=== PATIENT | female | born 1985 | race Caucasian/White ===

== ENCOUNTER 2018-04-20 12:49 | Emergency (ER) | payer MEDICAID ==
[~2018-04-20] VITALS: Wt 89.0 kg
[2018-04-20 12:52] VITALS: RESP 18
--- NOTE | 2018-04-20 16:22 | ERD ---
ER Documentation Chief Complaint Chief Complaint VAG BLEED TODAY 6 WEEKS PREG HPI 32-year-old female presents with vaginal spotting and cramping for last 2 days. Repair tube. She is referred by clinic for ultrasound. She had her blood drawn today to the clinic. Telephone call with clinic confirms only ultrasound requested. ROS All systems reviewed and are negative except as per history of present illness. PMhx/Soc Medical and Surgical Hx: pt denies Medical Hx, pt denies Surgical Hx Hx Alcohol Use: No Hx Substance Use: No Hx Tobacco Use: No Smoking Status: Never smoker FmHx Family History: No diabetes, No coronary disease, No other Physical Exam Vitals Vital Signs Date Temp Pulse Resp B/P (MAP) Pulse Ox O2 O2 Flow FiO2 Time Delivery Rate 04/20/18 98.3 74 18 120/61 99 12:52 (80) Physical Exam Const: No acute distress Head: Atraumatic Eyes: Normal Conjunctiva ENT: Normal External Ears, Nose and Mouth. Neck: Full range of motion. No meningismus. Resp: Clear to auscultation bilaterally Cardio: Regular rate and rhythm, no murmurs Abd: Soft, mild suprapubic tenderness. No change at McBurney's point no rebound., non distended. Normal bowel sounds Skin: No petechiae or rashes Back: No midline or flank tenderness Ext: No cyanosis, or edema Neur: Awake and alert Psych: Normal Mood and Affect Procedures/MDM Pelvic ultrasound shows a small cystic structure likely gestational sac. No pole or yolk sac visualized. No adnexal masses seen. Was placed with clinic. Patient presents with vaginal spotting and cramping of approximately 6-week . Differential includes early normal , ectopic , threatened . She will be discharged home today re check of hCG and return precautions for fevers, worsening bleeding, pain, new worsening symptoms. Currently has no signs of surgical abdomen, additional concerning symptoms symptoms but close follow-up advised. The patient was stable with no new complaints during the ER course. Clinically, there is no current evidence to suggest meningitis, sepsis, acute abdomen, pneumonia, strok e, acute coronary syndrome, pulmonary embolism, aortic dissection or any other emergent condition appearing to require further evaluation or hospitalization. Patient counseled regarding my diagnostic impression and care plan. Prior to discharge all questions answered. Pt agrees with treatment plan and understands strict return precautions. Pt is instructed to follow up with primary care provider within 24-48 hours. Precautionary instructions provided including instructions to return to the ER if not improving or for any worsening or changing symptoms or concerns. Departure Diagnosis: Primary Impression: Vaginal bleeding in patient at less than 20 weeks ges... Condition: Stable Patient Instructions: Bleeding During Early Additional Instructions: ULTRASONIDO DICE UN BOLSA TARAH. POSIBLEMENTE NORMAL, ECTOPICO O ABORTO. IMPORTANTE PARA CHEQUE OTOR VEZ EN 2-3 SKY PARA CHEQUE HAKAN OTRO VEZ FAUSTINO CHAVES MD Apr 20, 2018 16:22
[2018-04-20 16:28] VITALS: BP 125/63; PULSE 74
== END 2018-04-20 16:29 | disposition home or self-care (01) ==
LOC: FTE 12:49 → EDBD 12:49 → FTE 16:29
DX: O20.9 Hemorrhage in early pregnancy, unspecified (principal); Z3A.01 Less than 8 weeks gestation of pregnancy
CPT/HCPCS: 76801; 76817

== ENCOUNTER 2018-04-23 09:55 | Emergency (ER) | payer MEDICAID ==
[~2018-04-23] VITALS: Ht 172.7 cm; Wt 93.5 kg
[2018-04-23 10:07] VITALS: BP 115/60; PULSE 76; RESP 20; Ht 172.7 cm; Wt 93.5 kg
[2018-04-23] MEDS ORDERED: CEPH-443 PO (12:28)
[2018-04-23] MEDS ORDERED: ACET500C5 PO (12:28)
--- NOTE | 2018-04-23 12:37 | ERD ---
ER Documentation Chief Complaint Chief Complaint Patient here for a recheck vag bleed and 6 weeks pegnant HPI 32-year-old female patient with no significant past medical history presents to ED complaining of vaginal bleeding and lower pelvic pain that started about 8 days ago. Patient reports that she is a . States that her last mensuration was on March 02, 2018. States that she is taking folic acid, ferrous sulfate and calcium. Reports that she has some dysuria. Denies any chest pain, shortness of breath, nausea, vomiting, diarrhea, neck stiffness. ROS All systems reviewed and are negative except as per history of present illness. Medications Home Meds Active Scripts Cephalexin* (Keflex*) 500 Mg Capsule, 500 MG PO QID for 7 Days, CAP Prov:JESSIE PULLIAM PA-C 04/23/18 Acetaminophen* (Tylophen*) 500 Mg Capsule, 1 CAP PO Q6H PRN for PAIN AND OR ELEVATED TEMP, #20 CAP Prov:JESSIE PULLIAM PA-C 04/23/18 PMhx/Soc Medical and Surgical Hx: pt denies Medical Hx, pt denies Surgical Hx Hx Alcohol Use: No Hx Substance Use: No Hx Tobacco Use: No Smoking Status: Never smoker FmHx Family History: No diabetes, No coronary disease Physical Exam Vitals Vital Signs Date Temp Pulse Resp B/P (MAP) Pulse Ox O2 O2 Flow FiO2 Time Delivery Rate 04/23/18 98.6 76 20 115/60 100 10:07 (78) Physical Exam Const: [id number], well-nourished. In no acute distress. Head: Atraumatic, normocephalic Eyes: Normal Conjunctiva without injection. No purulent discharge. ENT: Normal external ear, nose. Moist oropharynx without tonsillar exudates. Non-erythematous pharynx. Uvula midline. No drooling. No trismus. Neck: No cervical midline tenderness. Full range of motion. No meningismus. No cervical lymphadenopathy. No JVD. Resp: Clear to auscultation bilaterally. No wheezing, rhonchi, rales, or crackles. No accessory muscle use. No retractions. Cardio: Regular rate and rhythm. No murmurs, rubs or gallops. Abd: Soft, nontender, non distended. Normal bowel sounds. No palpable masses. No rebound tenderness. No guarding. Negative McBurney's point. Negative psoas sign. Negative obturator sign. Skin: No petechiae or rashes Back: No midline tenderness. No CVA tenderness. Ext: No cyanosis, or edema. Neur: Awake and alert. Normal gait. Normal coordination. Psych: Normal Mood and Affect Result Diagram: 04/23/18 1105 Results 24 hrs Laboratory Tests Test 04/23/18 11:05 White Blood Count 9.4 10^3/ul Red Blood Count 5.24 10^6/ul Hemoglobin 12.2 g/dl Hematocrit 39.5 % Mean Corpuscular Volume 75.4 fl Mean Corpuscular Hemoglobin 23.3 pg Mean Corpuscular Hemoglobin Concent 30.9 g/dl Red Cell Distribution Width 18.4 % Platelet Count 305 10^3/UL Mean Platelet Volume 11.0 fl Immature Granulocytes % 0.400 % Neutrophils % 50.5 % Lymphocytes % 40.0 % Monocytes % 6.3 % Eosinophils % 2.1 % Basophils % 0.7 % Nucleated Red Blood Cells % 0.0 /100WBC Immature Granulocytes # 0.040 10^3/ul Neutrophils # 4.7 10^3/ul Lymphocytes # 3.8 10^3/ul Monocytes # 0.6 10^3/ul Eosinophils # 0.2 10^3/ul Basophils # 0.1 10^3/ul Nucleated Red Blood Cells # 0.0 10^3/ul Urine Color YELLOW Urine Clarity SLIGHTLY CLOUDY Urine pH 6.0 Urine Specific [place] 1.012 Urine Ketones NEGATIVE mg/dL Urine Nitrite NEGATIVE mg/dL Urine Bilirubin NEGATIVE mg/dL Urine Urobilinogen NEGATIVE mg/dL Urine Leukocyte Esterase NEGATIVE Vivian/ul Urine Microscopic RBC > 182 /HPF Urine Microscopic WBC 15 /HPF Urine Squamous Epithelial Cells FEW /HPF Urine Hemoglobin 3+ mg/dL Urine Glucose NEGATIVE mg/dL Urine Total Protein 1+ mg/dl Beta HCG, Quantitative 134.9 mIU/ml Procedures/MDM 32-year-old female patient with no significant past medical history presents to ED complaining of vaginal bleeding during her . Patient is afebrile and nontoxic-appearing. An ultrasound, beta-hCG, CBC, type and RH, UA was ordered to evaluate patient. CBC: No evidence of severe infection or anemia Urine: No elevation in nitrites, leukocyte esterase, 3+ hematuria. 15 WBC. Rh: O positive No indication for Rhogam at this time. beta Hc.9 IMPRESSION: Limited, transabdominal examination. The endometrium is not well visualized. No intrauterine identified. There are no adnexal masses. Correlation with serial beta HCGs and repeat pelvic ultrasound as clinically indicated, is recommended, as ectopic is not excluded on this examination. Patient was treated for urinary tract infection. At this time we still cannot rule out ectopic . Repeat beta-hCG and repeat ultrasound is recommended with [employer]. Patient's bleeding symptoms have stabilized while in the department. Low suspicion for symptomatic anemia, ectopic , sepsis, PID, appendicitis, ovarian torsion, tubo-ovarian abscess, surgical abdomen, or other emergent conditions. Patient was educated that there is a risk for threatened . Patient to follow up with [employer] in 2 days for further evaluation and treatment. Patient is to return sooner to the ED for any worsening symptoms. Patient's questions were answered. Patient understood and agreed with discharge plan. Departure Diagnosis: Primary Impression: Dysuria Additional Impression: Vaginal bleeding in Condition: Stable Patient Instructions: Urinary Tract Infections in Women, Vaginal Bleed in Referrals: [facility] Usted se power hecho un examen mdico de control que le indica que no est en mihai condicin que requiera tratamiento urgente en el Departamento de Emergencia. Un estudio ms profundo y el tratamiento de ficsher condicin pueden esperar sin ningn riesgo hasta que usted sea atendida/o en el consultorio de fischer mdico o mihai clnica. Es responsabilidad suya arreglar mihai laurita para el seguimiento del garrett. MANEJO DE CONDICIONES NO URGENTES EN EL FUTURO 1) Si usted tiene un mdico de atencin primaria: Usted debera llamar a fischer mdico de atencin primaria antes de venir al departa mento de emergencia. Despus de las horas de consultorio, fischer doctor o fischer asociado/a est disponible por telfono. El mdico o enfermero de brittnee en el servicio telefnico puede asesorarle por wilson medio para atender el problema, o garrett contrario se puede programar mihai laurita. 2) Si usted no tiene un mdico de atencin primaria: Llame al mdico o clnica de referencia que aparece abajo tim las horas de consultorio para hacer mihai laurita para que le vean. CLINICAS: [place] [address] [phone] [place] [address] [phone] [place] [address] [phone] [place] [address] [phone] [place] [address] [phone] [facility] [phone] [address] [facility] YOU HAVE RECEIVED A MEDICAL SCREENING EXAM AND THE RESULTS INDICATE THAT YOU DO NOT HAVE A CONDITION THAT REQUIRES URGENT TREATMENT IN THE EMERGENCY DEPARTMENT. FURTHER EVALUATION AND TREATMENT OF YOUR CONDITION CAN WAIT UNTIL YOU ARE SEEN IN YOUR DOCTORS OFFICE WITHIN THE NEXT 1-2 DAYS. IT IS YOUR RESPONSIBILITY TO MAKE AN APPOINTMENT FOR FOLOW-UP CARE. IF YOU HAVE A PRIMARY DOCTOR --you should call your primary doctor and schedule an appointment IF YOU DO NOT HAVE A PRIMARY DOCTOR YOU CAN CALL OUR PHYSICIAN REFERRAL HOTLINE AT IF YOU CAN NOT AFFORD TO SEE A PHYSICIAN YOU CAN CHOSE FROM THE FOLLOWING FORMERLY [facility] CL[facility]ICS [facility] [phone] [facility] [phone] [facility] [phone] [facility] [address] [facility] [phone] [address] [facility]. [facility] [address] [facility] () Usted se power hecho un examen mdico de control que le indica que no est en mihai condicin que requiera tratamiento urgente en el Departamento de Emergencia. Un estudio ms profundo y el tratamiento de fischer condicin pueden esperar sin ningn riesgo hasta que usted sea atendida/o en el consultorio de fischer mdico o mihai clnica. Es responsabilidad suya arreglar mihai laurita para el seguimiento del garrett. MANEJO DE CONDICIONES NO URGENTES EN EL FUTURO 1) Si usted tiene un mdico de atencin primaria: Usted debera llamar a fischer mdico de atencin primaria antes de venir al departamento de emergencia. Despus de las horas de consultorio, fischer doctor o fischer asociado/a est disponible por telfono. El mdico o enfermero de brittnee en el servicio telefnico puede asesorarle por wilson medio para atender el problema, o garrett contrario se puede programar mihai laurita. 2) Si usted no tiene un mdico de atencin primaria: Llame al mdico o condado institucions de referencia que aparece abajo tim las horas de consultorio para hacer mihai laurita para que le vean. SI USTED NO PUEDE PAGAR PARA HUBER UN MEDICO puede ir a: [facility] [address] [place] [address] [facility] [address] [place] [address] [facility] [address] [place] [address] PARA PABLITO [facility] [address] [place] [address] [employer] [place] [address] [facility] [address] [place] [address] OFFICE FAX CHRIS CAMILO [address] [place] [address] SCHREIBER, SIMEON [address] [place] [address] DR GOMES, [facility] [address] [address] [facility], [address], [place] [address] DR NICKERSON-ABIOLA, [facility] [address] [facility] [place] [address] [facility] [address] [place] [address] [facility], [facility] [id number] - [address] BOONE, LUIS M [address], [place] [address] DR LORENZ, LAURITA [address] [facility]. [address], [place] [address] DR BOWENS, BANNERID [address] [place], [place] [id number] [facility] Hours: 8:00 am - 5:00 pm Additional Instructions: Llame al doctor MAANA y raymundo mihai LAURITA PARA DENTRO DE 2-3 SKY para repetir la beta HCG y la ecografa plvica .Dgale a la secretaria que nosotros le instruimos hacer esta laurita.Avise o llame si fischer condicin se empeora antes de la laurita. Regresa aqui si peor o no mejor. JESSIE PULLIAM PA-C Apr 23, 2018 12:37
== END 2018-04-23 12:58 | disposition home or self-care (01) ==
LOC: FTE 09:55
DX: O20.9 Hemorrhage in early pregnancy, unspecified (principal); O23.41 Unspecified infection of urinary tract in pregnancy, first trimester; R10.2 Pelvic and perineal pain; Z3A.01 Less than 8 weeks gestation of pregnancy
CPT/HCPCS: 36415; 76801; 81001; 84702; 85025; 86900; 86901; Z7502